=== PATIENT | male | born 1995 | race Caucasian/White ===

== ENCOUNTER 2016-03-11 08:37 | Outpatient (CLI) | payer OTHER ==
[~2016-03-11] VITALS: Ht 188 cm; Wt 80.4 kg
[~2016-03-11 08:37] MED LIST: CYCL10TA9 PO; IBUP-1780 PO; TRAM50TA2 PO
[2016-03-11 08:45] VITALS: BP 140/91
== END 2016-03-11 08:58 | disposition home or self-care (01) ==
LOC: PREOP 08:37
PROVIDERS: ATTEND Specialist
DX: Z01.818 Encounter for other preprocedural examination (principal); Z11.2 Encounter for screening for other bacterial diseases; M26.03 Mandibular hyperplasia; M26.02 Maxillary hypoplasia
CPT/HCPCS: 87081

== ENCOUNTER 2016-03-17 06:00 | Day surgery (SDC) | payer OTHER ==
[~2016-03-17] VITALS: Ht 188 cm; Wt 80.4 kg
--- OUTSIDE RECORDS SUMMARY | 2016-03-17 06:07 | XMS REPORT | Continuity of Care Document ---
Author Author [facility] Organization [facility] Address Unknown Phone Unavailable Care Team Providers Care Solar Energy Sales Specialist Name Role Phone NO, LOCAL PHYSICIAN PCP Unavailable Insurance Providers Payer Name Policy Number Subscriber Name Relationship [facility] [id number] Ernestina Terry 16 Self / Same As Patient Advance Directives Directive Response Recorded Date/Time Advance Directives No 09/02/15 8:32am Health Care Power of Crew Manager No 09/02/15 8:32am Organ Donor No 09/02/15 8:32am Resuscitation Status Full Code 09/02/15 8:32am Chief Complaint and Reason for Visit Chief Complaint Lower Extremity Reason for Visit Ankle sprain Problems Active Problems Medical Problem Onset Date Status Ankle sprain Unknown Acute Hamstring muscle strain Unknown Acute Medications Current Home Medications Medication Dose Units Route Directions Days/Qty Instructions Start Date Tramadol Hcl 50 Mg 50 Mg Oral Every 4HRS as needed for Pain 20 Cyclobenzaprine Hcl 10 Mg 10 Mg Oral Every 8HRS as needed for Spasms 10 04/15/15 Ibuprofen 800 Mg 800 Mg Oral Every 8HRS for P 20 09/02/15 Social History Social History Problem Response Recorded Date/Time Alcohol Use Denies Use 09/02/2015 8:32am Recreational Drug Use No 09/02/2015 8:32am Recent Foreign Travel No 09/02/2015 7:20am Recent Infectious Disease Exposure No 09/02/2015 7:20am Sexually Transmitted Disease No 09/02/2015 8:32am HIV/AIDS No 09/02/2015 8:32am Smoking Status Never a Smoker 09/02/2015 8:32am Do you dip or chew tobacco? No 09/02/2015 8:32am Query Response Start Date Stop Date Smoking Status Never a Smoker Hospital Discharge Instructions No hospital discharge instructions. Plan of Care Discharge Date 09/02/15 8:40am Disposition 01 HOME, SELF-CARE Condition at Discharge Improved Instructions/Education Provided Ankle Sprain (ED) Prescriptions See Medication Section Referrals [facility],LOCAL PHYSICIAN - Primary Care Physician Additional Instructions/Education Ice and elevate right ankle today. Ibuprofen for pain. Mickey wrap air crest and crutches. Progressive weightbearing over the next 5 days. Follow-up with [facility] tomorrow for further care. Return if any problems. Functional Status No functional status results. Allergies, Adverse Reactions, Alerts No known allergies. Immunizations Name Given Type Tetanus Booster (TDap) More than 5yrs Historical Vital Signs Acute Vital Signs Vital Response Date/Time Temperature (Fahrenheit) 97.2 degrees F (97.6 - 99.5) 09/02/2015 7:20am Temperature (Calculated Celsius) 36.89348 degrees C (36.4 - 37.5) 09/02/2015 7:20am Pulse Rate (adult) 70 bpm (60 - 90) 09/02/2015 7:20am Respiratory Rate 16 bpm (12 - 24) 09/02/2015 7:20am O2 Sat by Pulse Oximetry 98 % (88 - 100) 09/02/2015 7:20am Blood Pressure 132/70 mm Hg 09/02/2015 7:20am Blood Pressure Mean 90 mm Hg 09/02/2015 7:20am Pain Pain Intensity 5 09/02/2015 7:20am Height (Feet) 6 feet 09/02/2015 7:20am Height (Inches) 2 inches 09/02/2015 7:20am Height (Calculated Centimeters) 187.559839 cm 09/02/2015 7:20am Weight (Pounds) 180 pounds 09/02/2015 7:20am Weight (Calculated Kilograms) 81.466344 kilograms 09/02/2015 7:20am Height 6 ft 2 in Weight 180 lb Body Mass Index 23.1 kg/m^2 Results No known relevant diagnostic tests, laboratory data and/or discharge summary. Procedures No known history of procedures. Encounters Encounter Location Arrival/Admit Date Discharge/Depart Date Attending Provider Departed Emergency Room [facility] 09/02/15 7:20am 09/01 8:40am STARR BRANTLEY MD Recent Diagnosis
--- OUTSIDE RECORDS SUMMARY | 2016-03-17 06:08 | XMS REPORT | Continuity of Care Document ---
Author Author [facility] Organization [facility] Address Unknown Phone Unavailable Care Team Providers Care Locker Room Clerk Name Role Phone NO, LOCAL PHYSICIAN PCP Unavailable Insurance Providers Payer Name Policy Number Subscriber Name Relationship [facility] [id number] Ernestina Terry 16 Self / Same As Patient Advance Directives Directive Response Recorded Date/Time Advance Directives No 09/02/15 8:32am Health Care Power of Hat Renovator No 09/02/15 8:32am Organ Donor No 09/02/15 [...] Sprain (ED) Prescriptions See Medication Section Referrals [facility],LOCAL PHYSICIAN - Primary Care Physician Additional Instructions/Education Ice and elevate right ankle today. Ibuprofen for pain. Mickey wrap air crest and crutches. Progressive weightbearing over the next 5 days. Follow-up with [facility] tomorrow for further care. Return if any problems. Functional Status No functional status results. Allergies, Adverse Reactions, Alerts No known allergies. Immunizations Name Given Type Tetanus Booster (TDap) More than 5yrs Historical Vital Signs Acute Vital Signs Vital Response Date/Time Temperature (Fahrenheit) 97.2 degrees F (97.6 - 99.5) 09/02/2015 7:20am Temperature (Calculated Celsius) 36.56837 degrees C (36.4 - 37.5) 09/02/2015 7:20am [...] 2 inches 09/02/2015 7:20am Height (Calculated Centimeters) 187.974835 cm 09/02/2015 7:20am Weight (Pounds) 180 pounds 09/02/2015 7:20am Weight (Calculated Kilograms) 81.695927 kilograms 09/02/2015 7:20am Height 6 ft 2 in Weight 180 lb Body Mass Index 23.1 kg/m^2 Results No known relevant diagnostic tests, laboratory data and/or discharge summary. Procedures No known history of procedures. Encounters Encounter Location Arrival/Admit Date Discharge/Depart Date Attending Provider Departed Emergency Room [facility] 09/02/15 7:20am 09/01 8:40am STARR BRANTLEY MD Recent Diagnosis
[2016-03-17] MEDS: LACTATED RINGERS 1,000 ML IV PRN ×3 (06:15→10:25)
[2016-03-17] MEDS ORDERED: ceFAZolin 2 GM IV (SDC ONLY) 50 ML ONE (06:19)
[2016-03-17 06:20] VITALS: BP 150/89
[2016-03-17] MEDS ORDERED: LIDOCAINE PF 2% 10 ML (XYLOCAINE) AMP ONE (06:36)
[2016-03-17] MEDS ORDERED: ROCURONIUM 50 MG/5 ML (ZEMURON) VIAL IV ONE ×3 (06:36→10:03)
[2016-03-17] MEDS ORDERED: fentaNYL INJECTION 250 MCG/5 ML AMP ONE (06:36)
[2016-03-17] MEDS ORDERED: SEVOFLURANE (ULTANE) 15 ML INHAL SOLN ONE ×4 (06:36→12:28)
[2016-03-17] MEDS ORDERED: proPOfol 200 MG/20 ML (DIPRIVAN) VIAL IV ONE (06:36)
[2016-03-17] MEDS ORDERED: MIDAZOLAM 2 MG/2 ML (VERSED) VIAL ONE (06:36)
[2016-03-17] MEDS ORDERED: ONDANSETRON 4 MG/2 ML (SDV) Z0FRAN ONE (06:36)
[2016-03-17] MEDS ORDERED: LIDOCAINE JELLY 2% (XYLOCAINE) 5 ML TUBE ONE (06:49)
[2016-03-17] MEDS ORDERED: LIDOCAINE/EPI 2% 1:100,00 (XYLOCAINE) 20 ML VIAL ONE ×2 (07:12→08:36)
[2016-03-17] MEDS ORDERED: ceFAZolin 2GM/50 ML DEXTROSE (PREMIX) IV ONE (07:15)
--- NOTE | 2016-03-17 07:46 | Progress Note-Pre Operative ---
Pre-Operative Progress Note H&P Reviewed The H&P was reviewed, patient examined and no changes noted. Date H&P Reviewed: Mar 17, 2016 Time H&P Reviewed: 07:00 Pre-Operative Diagnosis: pt has mandibular asymetry and maxillary hypoplasia CRISTIAN SIMMONS DDS Mar 17, 2016 7:46 am
[2016-03-17] MEDS ORDERED: HYDROmorphone (DILAUDID) 2 MG/ML VIAL IV PRN (08:00)
[2016-03-17] MEDS ORDERED: PHENYLEPHRINE 0.25% NASAL SPR (NEO-SYNEPHRINE) 15 ML NS ONE (08:11)
[2016-03-17] MEDS ORDERED: LACTATED RINGERS 1,000 ML IV ONE ×3 (08:49→13:01)
[2016-03-17] MEDS ORDERED: PHENYLEPHRINE 100 MCG/ML 10 ML (ANESTHESIA) SYR ONE (09:50)
[2016-03-17] MEDS ORDERED: ceFAZolin 1,000 MG (ANCEF) VIAL ONE (11:36)
[2016-03-17] MEDS ORDERED: ROPIVACAINE 5MG/ML 30ML VIAL ONE (12:25)
[2016-03-17] MEDS ORDERED: BSS 15 ML ONE (12:32)
--- NOTE | 2016-03-17 12:55 | Progress Note-Post Operative ---
Post-Operative Progess Note Washer Engineer Helper randy Kincaid Pre-Operative Diagnosis pt has mandibular asymetry and maxillary hypoplasia Post-Operative Diagnosis same Post-Op Procedure Note Date of Procedure: Mar 17, 2016 Name of Procedure: lefort 1 2 piece intra oral verical hagen osteotomy Anesthesia Type geta Estimated blood loss (mL): 300 ml Packing: none Specimen(s) collected none CRISTIAN SIMMONS DDS Mar 17, 2016 12:55 pm
[2016-03-17] MEDS ORDERED: DEXAMETHASONE 4 MG/ML SDV (DECADRON) ONE (12:59)
[2016-03-17] MEDS ORDERED: ONDANSETRON 4 MG/2 ML (SDV) Z0FRAN IVP PRN (13:00)
[2016-03-17] MEDS ORDERED: morphine INJ 10 MG/ML 1ML (SYR OR VIAL) IVP PRN (13:00)
[2016-03-17] MEDS ORDERED: MEPERIDINE (DEMEROL) INJ 50 MG/ML IVP PRN (13:00)
[2016-03-17] MEDS: DEXAMETHASONE 4 MG/ML SDV (DECADRON) IV SCH ×3 (13:17→20:27)
[2016-03-17] MEDS ORDERED: morphine INJ 10 MG/ML 1ML (SYR OR VIAL) ONE (13:22)
[2016-03-17 14:10] VITALS: BP 168/78
[2016-03-17] MEDS: ceFAZolin INJECTION 1,000 MG in NORMAL SALINE (BAXTER MINI) 50 ML IV SCH ×2 (14:42→20:28)
[2016-03-17] MEDS ORDERED: FLU TRIvalent (5 YOA+) 2016-17 (AFLURIA) 0.5 ML IM ONE (15:00)
[2016-03-17 16:00] VITALS: BP 161/79
[2016-03-17] MEDS: HYDROcodone/APAP 7.5MG-325 MG/15 ML (LORTAB) UDC PO PRN ×2 (16:43→23:32)
--- NOTE | 2016-03-17 18:37 | Diagnostic Imaging Report ---
INDICATION: Postop open fixation of maxillary fractures with arch bars present. FINDINGS: Maxillary and mandibular arch bars are present transfixing mandible in good alignment. There are several reconstruction plates noted over the maxilla bilaterally. IMPRESSION: Postoperative AP and lateral view showing hardware present in good position as described. Dictated by: Dictated on workstation # [id number]
[2016-03-17 20:00] VITALS: BP 139/76
[2016-03-18] VITALS: BP 161/88
[2016-03-18] MEDS: DEXAMETHASONE 4 MG/ML SDV (DECADRON) IV SCH ×4 (02:39→21:02)
[2016-03-18 04:00] VITALS: BP 148/81
[2016-03-18] MEDS: ceFAZolin INJECTION 1,000 MG in NORMAL SALINE (BAXTER MINI) 50 ML IV SCH ×3 (06:02→21:02)
[2016-03-18 08:00] VITALS: BP 165/72
[2016-03-18] MEDS: HYDROcodone/APAP 7.5MG-325 MG/15 ML (LORTAB) UDC PO PRN (08:03)
--- NOTE | 2016-03-18 10:12 | Progress Note-Standard ---
Standard Progress Note Progress Notes/Assess & Plan Progress/Assessment & Plan pt seen and examined, pt progressing well , need to increase po intake no sing of active hemorrhage or hematoma, will cont supportive care. pt to ambulate this am. vss af, at present time CRISTIAN SIMMONS DDS Mar 18, 2016 10:11 am
[2016-03-18] MEDS: LACTATED RINGERS 1,000 ML IV PRN ×2 (10:58)
--- NOTE | 2016-03-18 11:59 | Anesthesia-General Post-Op ---
General Patient Condition Mental Status/LOC: Same as Preop Cardiovascular: Satisfactory Nausea/Vomiting: Absent Respiratory: Satisfactory Pain: Controlled Complications: Absent Post Op Complications Complications None Follow Up Care/Instructions Patient Instructions None needed. Anesthesia/Patient Condition Patient Condition Patient is doing well, no complaints, stable vital signs, no apparent adverse anesthesia problems. No complications reported per nursing. ROSSI LONG CRNA Mar 18, 2016 11:59
[2016-03-18 12:00] VITALS: BP 138/80
[2016-03-18 16:30] VITALS: BP 145/81
--- NOTE | 2016-03-18 17:26 | Progress Note-Standard ---
Standard Progress Note Progress Notes/Assess & Plan Progress/Assessment & Plan pt seen and examined, pt progressing well , need to increase po intake no sing of active hemorrhage or hematoma, will cont supportive care. pt to ambulate this am. vss af, at present time Final Diagnosis maxillary hypoplasia,and mandibular asymetry CRISTIAN SIMMONS DDS Mar 18, 2016 5:26 pm
--- NOTE | 2016-03-18 17:30 | Progress Note-Standard ---
Standard Progress Note Progress Notes/Assess & Plan Progress/Assessment & Plan pt seen and examined, pt progressing well , need to increase po intake no sing of active hemorrhage or hematoma, will cont supportive care. pt to ambulate this am. vss af, at present time 1730 pt seen and examined, pt orogressing but somewhat slowly, VSS AF, pt able to ambulate lungs clear, but po intake inadequate for dc, will [place] overnight cont supportive care, probably DC in the am. pain has been controlled with po meds. rest of exam negative, radiographs show both condyles in the fossa. CRISTIAN SIMMONS DDS Mar 18, 2016 5:30 pm
[2016-03-18 19:50] VITALS: BP 157/83
[2016-03-19] VITALS: BP 156/85
[2016-03-19] MEDS: LACTATED RINGERS 1,000 ML IV PRN (02:41)
[2016-03-19] MEDS: DEXAMETHASONE 4 MG/ML SDV (DECADRON) IV SCH ×2 (02:41→08:12)
[2016-03-19 04:00] VITALS: BP 152/86
[2016-03-19 08:00] VITALS: BP 178/88
[2016-03-19 12:00] VITALS: BP 138/85
[2016-03-19 12:30] VITALS: BP 138/85
--- NOTE | 2016-04-03 12:43 | OPERATIVE REPORT ---
PROCEDURE PHYSICIAN: CRISTIAN SIMMONS DATE OF PROCEDURE: 03/17/2016 SERVICE: frame changer. SURGEON: Dr. Cristian Simmons PORTFOLIO ACCOUNTANT: Kristel Johnston PREOPERATIVE DIAGNOSIS: 1. 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 POSTOPERATIVE DIAGNOSIS: 1. 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 PROCEDURE: 1. LeFort I osteotomy, two piece. 2. Intraoral vertical ramus osteotomy bilateral. ESTIMATED BLOOD LOSS: 300 mL. FLUIDS: 2800 mL of crystalloid. URINE OUTPUT: Was 325 mL HISTORY OF THE PRESENT ILLNESS/INDICATION FOR PROCEDURE: Mr. Tavera is a 21-year-old, otherwise healthy male who presented approximately one year previous to my clinic after referral from Dr. Grisel Edgar his manager banking. After speaking to him extensively as to his condition which he had asymmetric fascial growth where his left chondral portion of this mandible had overgrown and caused a significant facial deformity with asymmetry of both his mandible and his maxilla. He underwent extensive presurgical orthodontics, including a removal of his wisdom teeth. Then again after speaking with him extensively, the only way to correct his teeth where he could have an adequate occlusion from mastication formation that he would need to have a LeFort osteotomy to the asymmetry and a midline split to correct his decreased posterior maxillary width and then a vertical ramus osteotomy Intraoral bilaterally. I spoke to him also extensively the risk to the inferior alveolar nerve anytime and do a vertical ramus osteotomy due to the alveolar nerve put at risk on bone both sides. Appropriate time was given for questions and these were answered then he was adequately sedated and scheduled for surgery at the earliest opportune time. PROCEDURE: The patient was taken to the operating room, placed on the operatory table. The appropriate monitors placed and anesthesia was induced via nasotracheal intubation down the right nares. After depositing local anesthesia after this, the surgeon left the room, scrubbed, returned, donned sterile gowns and gloves and prepped and draped the patient in the usual standard, sterile fashion. After this, we deposited local anesthesia and a bilateral mandibular block, as well as upper maxillary infiltration. After this, we then made a full thickness mucoperiosteal flap incision from the first molar to first molar bilaterally. This was then elevated with a periosteal elevator as well as dissecting down on the lateral aspect of the nose and the floor of the nose and then posterior to the maxillary buttress. After this, we used (s/l Gaby Mustafa) caliper to fern the intended LeFort osteotomy 25 mm above the cusp of the first molar and 35 mm above the cusp of the canine bilaterally. Then also placed bilateral internal referent vieyra on the maxilla as well in the premolar region. After this, we used a reciprocating saw to make an incision in the maxillary buttress along the anterior wall of the maxilla and then to the lateral wall of the nose, bilaterally. After this, I used a nasoseptal osteotome to remove the nasal septum both bony and the cartilaginous portion from the superior aspect of the maxilla. Then used a curved osteotome to make a posterior maxillary cuts down to the tuberosity and then we also used a straight osteotome along the lateral wall of the nose at the medial aspect of the sinus. After this, I was able to mobilize complete the down fracture of the maxilla without difficulty. There was no excessive hemorrhage and we did not have a split which we damaged the greater palatine vessels. After this, I removed any interferences with both the rongeur and a large round bur. I was then able to use the small round bur to make our midline osteotomy in the maxilla and then in the anterior region after using minimal elevation of the interdental papilla between teeth numbers 8 and 9. A small straight osteotome was used to complete our osteotomy and so we then were able to separate the maxilla into two pieces. After this we then wired the maxilla into our surgical splint which had been fabricated doing model surgery. This was clear without difficulty. After this we were able to place our transitional intermediate splint and then wired the patient into intermaxillary fixation making sure that we checking referent vieyra and these were then consistent with our model surgery. We then placed 2 pyriform rim plates and then 2 zygomatic buttress plates with 2 screws in the proximal 2 in the distal segments. After this, we then removed him from any maxillary fixation. Then made a full-thickness mucoperiosteal flap incision on the anterior lateral aspect of the mandible, carried this down approximately to the distal to first molar, then dissected subperiosteally up to the coronoid notch as well as inferior border of the mandible and posteriorly to the posterior border. After this, we used an oscillating saw and then made our osteotomy on the left side starting at the posterior aspect where the lingula would be on the medial side starting laterally and then completed our osteotomy first going superiorly and then inferiorly. We then dissected medially on the mandible to free up the muscular attachments and this was periosteally as well. Identified the neurovascular bundle had not been damaged and then mobilized our segment placement laterally. The exact same procedure was completed on the right side; we started on the left. After this, we then placed the patient into intermaxillary fixation with our final occlusion in our surgical splint with 3 wire loops. We copiously irrigated with normal saline and closed the mandible with 3-0 chromic gut in an interrupted and running fashion. The maxilla was closed after we placed an alar cinch suture with 2-0 [place] and then closed it with after in a VY closure with 4-0 chromic gut in a interrupted and running fashion. This completed our procedure. He was allowed to emerge from his general anesthetic. He was then extubated in the operating room and transported to the recovery room in stable vital signs, breathing spontaneously with pulse oximetry 99%. Job ID: [id number] Dictated Date: 04/02/2016 14:57:05 Keysmith Date: 04/03/2016 12:09:17 / todd
== END 2016-03-19 12:35 | disposition home or self-care (01) ==
LOC: SDC 06:00 → 4TH 14:10 → SDC 03-19 12:35
PROVIDERS: ATTEND Specialist
DX: M26.02 Maxillary hypoplasia (principal)
CPT/HCPCS: 70250; 94760